=== PATIENT | female | born 1980 ===

== ENCOUNTER 2017-04-19 10:21 | Outpatient (CLI) | payer MEDICAID ==
--- NOTE | 2017-04-19 16:31 | Mammography Report ---
BILATERAL DIGITAL DIAGNOSTIC MAMMOGRAM and LEFT BREAST ULTRASOUND: 04/19/17 10:21:00 CLINICAL: Recalled for bilateral asymmetries. COMPARISON:04/05/17 screening FINDINGS: Bilateral true lateral and spot compression MLO and CC views were performed. Satisfactory effacement of the right asymmetry. Circumscribed densities persist in the left breast. 2 circumscribed densities on the CC view and one on the MLO view. Ultrasound of the left breast (including all four quadrants and the retroareolar area) was performed. A lymph node at 5 o'clock 2 cm from the nipple measures 10 x 6 x 5 mm and correlates with the lower outer density density on the mammogram. Although it doesn't have central fat, it has a notch on both the ultrasound and on the mammogram. An oval relatively flat cyst or lymph node at 6 o'clock 5 cm from the nipple measures 5 x 1 x 3 mm and may correlate with the mammographic density. IMPRESSION: Probably benign mammographic densities and probable lymph nodes or cysts by ultrasound. BI-RADS CATEGORY: 3 - - Probably Benign RECOMMENDATION: Six month followup left mammogram and left breast ultrasound. ACR BI-RADS MAMMOGRAPHIC CODES: 0 = Needs additional imaging evaluation; 1 = Negative; 2 = Benign; 3 = Probably benign; 4 = Suspicious; 5 = Malignant; 6 = Known biopsy-proven malignancy COMMENT: 1. Dense breast tissue, i.e., adenosis, fibrocystic changes, etc., may obscure an underlying neoplasm. 2. Approximately 10% of cancers are not detected with mammography. 3. A negative mammography report should not delay biopsy if a clinically suspicious mass is present. COMMENT: Patient follow-up letters are generated via our [employer] application.
== END 2017-04-19 10:22 | disposition home or self-care (01) ==
LOC: SPVWC 10:21
PROVIDERS: ATTEND Family Medicine
DX: R92.8 Other abnormal and inconclusive findings on diagnostic imaging of breast (principal)
CPT/HCPCS: 76641; G0204; 77066

== ENCOUNTER 2017-09-29 10:09 | Outpatient (CLI) | payer MEDICAID ==
--- NOTE | 2017-09-29 11:38 | Mammography Report ---
Left mammogram and left breast ultrasound: Routine views are compared to prior exams dating back to April 05, 2017. 2 small nodular densities identified in the superior and mid left breast are again identified as being unchanged from the initial screening exam at that time. Left breast ultrasound is compared to her prior exam on April 19, 2017. In the 5:00 and 7:00 locations the smaller a lucency seen at that time are again present and most likely represent benign cysts. A focal hypodensity considered to be a lymph node that was identified in the 5:00 location 2 cm from the nipple however cannot be identified on the current examination. No additional findings. Impressions: Stable probably benign mammographic nodules and 2 small left breast cysts. Recommendations: Return to annual mammography in 6 months. BI-RADS CATEGORY: 3 = Probably benign ACR BI-RADS MAMMOGRAPHIC CODES: 0 = Needs additional imaging evaluation; 1 = Negative; 2 = Benign; 3 = Probably benign; 4 = Suspicious; 5 = Malignant; 6 = Known biopsy-proven malignancy COMMENT: 1. Dense breast tissue, i.e., adenosis, fibrocystic changes, etc., may obscure an underlying neoplasm. 2. Approximately 10% of cancers are not detected with mammography. 3. A negative mammography report should not delay biopsy if a clinically suspicious mass is present.
== END 2017-09-29 10:10 | disposition home or self-care (01) ==
LOC: SPVWC 10:09
PROVIDERS: ATTEND Family Medicine
DX: R92.8 Other abnormal and inconclusive findings on diagnostic imaging of breast (principal)